=== PATIENT | male | born 1950 | race Caucasian/White ===

== ENCOUNTER 2020-04-26 08:34 | Outpatient (CLI) | payer MEDICARE, SELFPAY ==
--- NOTE | ~2020-04-26 | US_ITS ---
US thyroid INDICATION: Nontoxic thyroid goiter TECHNIQUE: Real-time sonographic images of the thyroid gland were obtained. COMPARISON: No prior studies for comparison. FINDINGS: The right thyroid lobe measures 5 x 2.3 x 1.4 cm. The left thyroid lobe measures 3.7 x 1.7 x 1.6 cm. There is heterogeneous echotexture and echogenicity throughout the thyroid gland. No discr ete nodules identified. Normal vascular flow is present. IMPRESSION: 1. Heterogeneous thyroid gland without discrete mass. Reviewed, dictated and finalized at location A.
[2020-04-26 10:02] LABS: Alanine Aminotransferase 33 U/L (4-50); Albumin Level 4.4 g/dL (3.5-5.1); Alkaline Phosphatase 79 U/L (38-126); Aspartate Amino Transferase 38 U/L (17-59); Bilirubin,Total 0.4 mg/dL (0.2-1.3); Blood Urea Nitrogen 18 mg/dL (9-20); Calcium 9.1 mg/dL (8.4-10.2); Carbon Dioxide 23 mmol/L (22-30); Chloride 103 mmol/L (98-107); Cholesterol 109 mg/dL (0-200); Estimated Glomerular Filt Rate > 60; Glucose 114 mg/dL (75-110); HDL Direct 45 mg/dL; Potassium 4.6 mmol/L (3.4-5.0); Sodium 135 mmol/L (137-145); Triglycerides 89 mg/dL (<150)
[2020-04-26 10:06] LABS: Hemoglobin A1C 5.8 % (<5.7)
[2020-04-26 10:08] LABS: LDL Cholesterol Direct 44 mg/dL
[2020-04-26 10:32] LABS: Creatinine Urine 92.2 mg/dL; Free T4 Free Thyroxine 1.04 ng/mL (0.78-2.19)
[2020-04-26 10:37] LABS: MALB Creatinine Ratio 23.2 mg/g (0-30); Microalbumin Urine Random 21.4 mg/L (0-16.7)
[2020-04-26 11:02] LABS: Folic Acid 18.9 ng/mL (2.76->20)
[2020-04-29 03:03] LABS: Triiodothyronine T3 Free 3.2 pg/mL (2.3-4.2)
[2020-04-29 03:27] LABS: Thyroid Peroxidase Antibodies <1 IU/mL (<9)
[2020-04-30 14:00] LABS: Testosterone Free 36.6 pg/mL (30.0-135.0); Testosterone Total 222 ng/dL (250-1100)
== END 2020-04-26 08:35 | disposition home or self-care (01) ==
PROVIDERS: Visit Provider Internal Medicine Endocrinology, Diabetes & Metabolism
DX: E11.65 Type 2 diabetes mellitus with hyperglycemia (principal); R53.83 Other fatigue
CPT/HCPCS: 36415; 76536; 80053; 80061; 82043; 82607; 82746; 83036; 84402; 84403; 84439; 84443; 84481; 86376

== ENCOUNTER 2020-06-14 09:13 | Outpatient (CLI) | payer MEDICARE, SELFPAY ==
[2020-06-14 10:05] LABS: Alanine Aminotransferase 42 U/L (4-50); Albumin Level 4.2 g/dL (3.5-5.1); Alkaline Phosphatase 68 U/L (38-126); Anion Gap 14.5 mmol/L (7-16); Aspartate Amino Transferase 38 U/L (17-59); Bilirubin,Total 0.3 mg/dL (0.2-1.3); Blood Urea Nitrogen 17 mg/dL (9-20); Calcium 9.3 mg/dL (8.4-10.2); Carbon Dioxide 24 mmol/L (22-30); Chloride 102 mmol/L (98-107); Cholesterol 104 mg/dL (0-200); Estimated Glomerular Filt Rate > 60; Glucose 117 mg/dL (75-110); HDL Direct 43 mg/dL; Potassium 4.5 mmol/L (3.4-5.0); Sodium 136 mmol/L (137-145); Triglycerides 111 mg/dL (<150)
[2020-06-14 10:11] LABS: Creatinine Urine 69.9 mg/dL
[2020-06-14 10:17] LABS: LDL Cholesterol Direct 43 mg/dL
[2020-06-14 10:18] LABS: MALB Creatinine Ratio 57.5 mg/g (0-30); Microalbumin Urine Random 40.2 mg/L (0-16.7)
[2020-06-14 14:32] LABS: Hemoglobin A1C 5.7 % (<5.7)
== END 2020-06-14 09:14 | disposition home or self-care (01) ==
PROVIDERS: PCP Internal Medicine Endocrinology, Diabetes & Metabolism; Visit Provider Internal Medicine Endocrinology, Diabetes & Metabolism
DX: E11.9 Type 2 diabetes mellitus without complications (principal); E78.5 Hyperlipidemia, unspecified
CPT/HCPCS: 36415; 80053; 80061; 82043; 83036

== ENCOUNTER 2020-09-13 08:18 | Outpatient (CLI) | payer MEDICARE, SELFPAY ==
[2020-09-13 09:39] LABS: Alanine Aminotransferase 32 U/L (4-50); Albumin Level 4.6 g/dL (3.5-5.1); Alkaline Phosphatase 73 U/L (38-126); Anion Gap 10 mmol/L (8-16); Aspartate Amino Transferase 29 U/L (17-59); Bilirubin,Total 0.3 mg/dL (0.2-1.3); Blood Urea Nitrogen 31 mg/dL (9-20); Calcium 9.7 mg/dL (8.4-10.2); Carbon Dioxide 27 mmol/L (22-30); Chloride 103 mmol/L (98-107); Estimated Glomerular Filt Rate 46; Glucose 116 mg/dL (75-110); Sodium 140 mmol/L (137-145)
[2020-09-13 09:41] LABS: Hemoglobin A1C 5.6 % (<5.7)
[2020-09-13 09:57] LABS: Iron 79 ug/dL (49-181)
[2020-09-13 10:03] LABS: MALB Creatinine Ratio 15.8 mg/g (0-30); Microalbumin Urine Random 11.5 mg/L (0-16.7)
[2020-09-13 10:07] LABS: Percent Iron Saturation 18 % (20-50)
[2020-09-16 13:08] LABS: FSH 6.3 mIU/mL (1.6-8.0); LH 6.3 mIU/mL (1.6-15.2)
== END 2020-09-13 08:19 | disposition home or self-care (01) ==
PROVIDERS: Visit Provider Internal Medicine Endocrinology, Diabetes & Metabolism
DX: E11.9 Type 2 diabetes mellitus without complications (principal); R79.89 Other specified abnormal findings of blood chemistry
CPT/HCPCS: 36415; 80053; 82043; 82728; 83001; 83002; 83036; 83540; 83550; 84146

== ENCOUNTER 2021-01-20 15:03 | Outpatient (CLI) | payer MEDICARE, SELFPAY | END 2021-01-20 15:04 | disposition home or self-care (01) | LOC: ANHCOVIDVC 15:03 | DX: Z23 Encounter for immunization (principal) | CPT/HCPCS: 0001A; 91300 ==

== ENCOUNTER 2021-02-02 07:35 | Outpatient (CLI) | payer MEDICARE, SELFPAY ==
[2021-02-02 08:18] LABS: Alanine Aminotransferase 30 U/L (4-50); Albumin Level 4.1 g/dL (3.5-5.1); Alkaline Phosphatase 68 U/L (38-126); Anion Gap 5 mmol/L (8-16); Aspartate Amino Transferase 28 U/L (17-59); Bilirubin,Total 0.3 mg/dL (0.2-1.3); Blood Urea Nitrogen 23 mg/dL (9-20); Calcium 9.2 mg/dL (8.4-10.2); Carbon Dioxide 31 mmol/L (22-30); Chloride 104 mmol/L (98-107); Cholesterol 117 mg/dL (0-200); Estimated Glomerular Filt Rate 55; Glucose 129 mg/dL (75-110); HDL Direct 43 mg/dL; Potassium 4.6 mmol/L (3.4-5.0); Sodium 140 mmol/L (137-145); Triglycerides 162 mg/dL (<150)
[2021-02-02 08:28] LABS: LDL Cholesterol Direct 48 mg/dL
[2021-02-02 08:59] LABS: MALB Creatinine Ratio 14.6 mg/g (0-30); Microalbumin Urine Random 7.9 mg/L (0-16.7)
[2021-02-02 09:32] LABS: Hemoglobin A1C 5.5 % (<5.7)
== END 2021-02-02 07:36 | disposition home or self-care (01) ==
PROVIDERS: Visit Provider Internal Medicine Endocrinology, Diabetes & Metabolism
DX: E78.5 Hyperlipidemia, unspecified (principal); E11.9 Type 2 diabetes mellitus without complications
CPT/HCPCS: 36415; 80053; 80061; 82043; 83036

== ENCOUNTER 2021-02-10 14:59 | Outpatient (CLI) | payer MEDICARE, SELFPAY | END 2021-02-10 15:00 | disposition home or self-care (01) | LOC: ANHCOVIDVC 14:59 | DX: Z23 Encounter for immunization (principal) | CPT/HCPCS: 0002A; 91300 ==

== ENCOUNTER 2021-07-19 07:26 | Outpatient (CLI) | payer MEDICARE, SELFPAY ==
[2021-07-19 08:41] LABS: Iron 74 ug/dL (49-181)
[2021-07-19 08:51] LABS: Percent Iron Saturation 18 % (20-50)
[2021-07-22 07:42] LABS: FSH 7.1 mIU/mL (1.6-8.0); LH 6.9 mIU/mL (1.6-15.2)
[2021-07-22 19:08] LABS: Testosterone Free 51.3 pg/mL (30.0-135.0); Testosterone Total 242 ng/dL (250-1100)
== END 2021-07-19 07:27 | disposition home or self-care (01) ==
PROVIDERS: Visit Provider Internal Medicine Endocrinology, Diabetes & Metabolism
DX: R79.89 Other specified abnormal findings of blood chemistry (principal)
CPT/HCPCS: 36415; 82728; 83001; 83002; 83540; 83550; 84146; 84402; 84403

== ENCOUNTER 2021-08-23 07:42 | Outpatient (CLI) | payer MEDICARE, SELFPAY ==
[2021-08-23 08:26] LABS: Alanine Aminotransferase 28 U/L (4-50); Albumin Level 4.7 g/dL (3.5-5.1); Alkaline Phosphatase 82 U/L (38-126); Anion Gap 10 mmol/L (8-16); Aspartate Amino Transferase 26 U/L (17-59); Bilirubin,Total 0.4 mg/dL (0.2-1.3); Blood Urea Nitrogen 29 mg/dL (9-20); Calcium 9.8 mg/dL (8.4-10.2); Carbon Dioxide 25 mmol/L (22-30); Chloride 105 mmol/L (98-107); Cholesterol 116 mg/dL (0-200); Estimated Glomerular Filt Rate 50; Glucose 131 mg/dL (65-110); HDL Direct 45 mg/dL; Potassium 5.1 mmol/L (3.4-5.0); Sodium 140 mmol/L (137-145); Triglycerides 143 mg/dL (<150)
[2021-08-23 08:37] LABS: LDL Cholesterol Direct 49 mg/dL
[2021-08-23 10:07] LABS: Creatinine Urine 64.7 mg/dL
[2021-08-23 10:12] LABS: Hemoglobin A1C 6.1 % (<5.7)
[2021-08-23 10:27] LABS: MALB Creatinine Ratio 17.5 mg/g (0-30); Microalbumin Urine Random 11.3 mg/L (0-16.7)
[2021-08-23 10:47] LABS: Free T4 Free Thyroxine 0.96 ng/mL (0.78-2.19)
== END 2021-08-23 07:43 | disposition home or self-care (01) ==
PROVIDERS: Visit Provider Internal Medicine Endocrinology, Diabetes & Metabolism
DX: E11.9 Type 2 diabetes mellitus without complications (principal); E78.5 Hyperlipidemia, unspecified
CPT/HCPCS: 36415; 80053; 80061; 82043; 83036; 84439; 84443

== ENCOUNTER 2022-01-24 07:11 | Outpatient (CLI) | payer MEDICARE, SELFPAY ==
[2022-01-24 08:02] LABS: Alanine Aminotransferase 26 U/L (4-50); Albumin Level 4.2 g/dL (3.5-5.1); Alkaline Phosphatase 78 U/L (38-126); Anion Gap 5 mmol/L (8-16); Aspartate Amino Transferase 26 U/L (17-59); Bilirubin,Total 0.2 mg/dL (0.2-1.3); Blood Urea Nitrogen 31 mg/dL (9-20); Calcium 9.2 mg/dL (8.4-10.2); Carbon Dioxide 25 mmol/L (22-30); Chloride 106 mmol/L (98-107); Cholesterol 108 mg/dL (0-200); Estimated Glomerular Filt Rate 46; Glucose 142 mg/dL (65-110); HDL Direct 38 mg/dL; Potassium 5.1 mmol/L (3.4-5.0); Sodium 136 mmol/L (137-145); Triglycerides 122 mg/dL (<150)
[2022-01-24 08:13] LABS: LDL Cholesterol Direct 46 mg/dL
[2022-01-24 08:20] LABS: Creatinine Urine 86.5 mg/dL
[2022-01-24 08:24] LABS: MALB Creatinine Ratio 17.5 mg/g (0-30); Microalbumin Urine Random 15.1 mg/L (0-16.7)
[2022-01-24 10:11] LABS: Hemoglobin A1C 5.9 % (<5.7)
== END 2022-01-24 07:12 | disposition home or self-care (01) ==
PROVIDERS: Visit Provider Internal Medicine Endocrinology, Diabetes & Metabolism
DX: E11.9 Type 2 diabetes mellitus without complications (principal)
CPT/HCPCS: 36415; 80053; 80061; 82043; 83036

== ENCOUNTER 2022-08-14 06:55 | Outpatient (CLI) | payer MEDICARE, SELFPAY ==
[2022-08-14 07:40] LABS: Alanine Aminotransferase 28 U/L (6-50); Albumin Level 4.3 g/dL (3.5-5.1); Alkaline Phosphatase 82 U/L (38-126); Anion Gap 12 mmol/L (8-16); Aspartate Amino Transferase 25 U/L (17-59); Bilirubin,Total 0.3 mg/dL (0.2-1.3); Blood Urea Nitrogen 23 mg/dL (9-20); Calcium 9.5 mg/dL (8.4-10.2); Carbon Dioxide 26 mmol/L (22-30); Chloride 103 mmol/L (98-107); Cholesterol 122 mg/dL (0-200); Estimated Glomerular Filt Rate 54; Glucose 164 mg/dL (65-110); HDL Direct 44 mg/dL; Potassium 4.5 mmol/L (3.4-5.0); Sodium 141 mmol/L (137-145); Triglycerides 141 mg/dL (<150)
[2022-08-14 07:51] LABS: LDL Cholesterol Direct 49 mg/dL
[2022-08-14 07:53] LABS: Microalbumin Urine Random 17.3 mg/L (0-16.7)
[2022-08-14 07:54] LABS: Creatinine Urine 64.9 mg/dL; MALB Creatinine Ratio 26.7 mg/g (0-30)
[2022-08-14 08:24] LABS: Hemoglobin A1C 6.5 % (<5.7)
[2022-08-14 08:26] LABS: Free T4 Free Thyroxine 1.14 ng/mL (0.78-2.19)
== END 2022-08-14 06:56 | disposition home or self-care (01) ==
LOC: ANHLAB 06:59
PROVIDERS: Visit Provider Internal Medicine Endocrinology, Diabetes & Metabolism
DX: E78.5 Hyperlipidemia, unspecified (principal); E11.9 Type 2 diabetes mellitus without complications
CPT/HCPCS: 36415; 80053; 80061; 82043; 83036; 84439; 84443

== ENCOUNTER 2022-08-29 08:59 | Outpatient (CLI) | payer MEDICARE, SELFPAY ==
--- NOTE | ~2022-08-29 | XR_ITS ---
EXAM: XR knee RT 3V DATE: 08/29/2022 09:24 HISTORY: M25.561 - Pain in right knee . COMPARISON: None available. FINDINGS: Right knee arthroplasty with patellar resurfacing, no hardware related complication. Multi ple ossific bodies projecting over the posterior soft tissues and the suprapatellar soft tissues, may represent some combination of surgical fragments, dystrophic calcification/ossification, soft tissue calcification such as fabella, or loose bodies. IMPRESSION: No osseous fracture. No hardware related consultation. Ossific bodies projecting over the soft tissues, detailed above. Reviewed, dictated and finalized at location K. IMPRESSION: No osseous fracture. No hardware related consultation. Ossific bodi es projecting over the soft tissues, detailed above.
== END 2022-08-29 09:00 | disposition home or self-care (01) ==
LOC: CHSIMG 09:03
PROVIDERS: Visit Provider Orthopaedic Surgery
DX: M25.561 Pain in right knee (principal)
CPT/HCPCS: 73562

== ENCOUNTER 2022-09-04 12:04 | Outpatient (CLI) | payer MEDICARE, SELFPAY ==
--- NOTE | ~2022-09-04 | CT_ITS ---
EXAMINATION: CT knee RT wo con DATE: 09/04/2022 12:33 INDICATION: Right knee pain. TECHNIQUE: Computed tomography (CT) of the right knee was performed without intravenous contrast. Aut omated exposure control and iterative reconstruction technique were employed. The dose-length product was 546.42 mGy-cm. COMPARISON: Right knee radiographs 08/29/2022 FINDINGS: There is a total right knee arthroplasty in near-anatomic alignment. No fracture. No peripr osthetic lucency to suggest loosening or infection. There is a small knee joint effusion. There are d ystrophic calcifications in the area of the quadriceps tendon. There are loose bodies in a [address]. IMPRESSION: 1. Total right knee arthroplasty in near-anatomic alignment. 2. Small right knee joint effusion. Reviewed, dictated and finalized at location B.
== END 2022-09-04 12:05 | disposition home or self-care (01) ==
LOC: CHSIMG 12:07
PROVIDERS: Visit Provider Orthopaedic Surgery
DX: T84.84XA Pain due to internal orthopedic prosthetic devices, implants and grafts, initial encounter (principal); Z96.651 Presence of right artificial knee joint
CPT/HCPCS: 73700

== ENCOUNTER 2022-09-15 07:42 | Outpatient (CLI) | payer MEDICARE, SELFPAY ==
--- NOTE | ~2022-09-15 | XR_ITS ---
XR lg joint inject/asp w image INDICATION: Right hip arthritis TECHNIQUE: After discussing the procedure with the patient, including the possible risks, complicatio ns, and benefits, oral consent was obtained. A timeout was performed verifying the patient's name, d ate of , and site of injection. The skin overlying the joint was prepped and draped in usual st erile fashion. Anesthetic was administered with 1% lidocaine subcutaneously. A 22 G needle was adva nced under fluoroscopic guidance into the right hip joint. Injection of 1cc of Omnipaque 240 was per formed to verify intra-articular position of the needle. Intra-articular needle position was confirm ed. Subsequently, injectate consisting of 80 mg Depo-Medrol and 2 cc of 0.5% Marcaine were instilled . The needle was removed and the entry site was cleaned and dressed. There were no immediate compli cations.] FINDINGS: Patient's pain prior to procedure: 07/29. Patient's pain following the procedure: 12/29.] IMPRESSION: 1.: Successful right hip injection of anesthetic and steroid with diminution of presenting pain. Reviewed, dictated and finalized at location B. IMPRESSION: 1.: Successful right hip injection of anesthetic and steroid with diminution o f presenting pain.
== END 2022-09-15 07:43 | disposition home or self-care (01) ==
LOC: CHSIMG 07:45
PROVIDERS: Visit Provider Orthopaedic Surgery
DX: M16.11 Unilateral primary osteoarthritis, right hip (principal)
CPT/HCPCS: 20610; 77002; J1030; Q9965

== ENCOUNTER 2022-12-21 07:01 | Outpatient (CLI) | payer MEDICARE, SELFPAY ==
[2022-12-21 08:05] LABS: Creatinine Urine 59.8 mg/dL
[2022-12-21 08:09] LABS: Alanine Aminotransferase 34 U/L (6-50); Albumin Level 4.1 g/dL (3.5-5.1); Alkaline Phosphatase 91 U/L (38-126); Anion Gap 7 mmol/L (8-16); Aspartate Amino Transferase 31 U/L (17-59); Bilirubin,Total 0.5 mg/dL (0.2-1.3); Blood Urea Nitrogen 23 mg/dL (9-20); Calcium 9.1 mg/dL (8.4-10.2); Carbon Dioxide 27 mmol/L (22-30); Chloride 102 mmol/L (98-107); Cholesterol 121 mg/dL (0-200); Estimated Glomerular Filt Rate 50; Glucose 152 mg/dL (65-110); HDL Direct 40 mg/dL; Potassium 4.5 mmol/L (3.4-5.0); Sodium 136 mmol/L (137-145); Triglycerides 201 mg/dL (<150)
[2022-12-21 08:10] LABS: MALB Creatinine Ratio 26.6 mg/g (0-30); Microalbumin Urine Random 15.9 mg/L (0-16.7)
[2022-12-21 08:21] LABS: LDL Cholesterol Direct 47 mg/dL
[2022-12-21 08:29] LABS: Free T4 Free Thyroxine 1.15 ng/mL (0.78-2.19)
== END 2022-12-21 07:02 | disposition home or self-care (01) ==
PROVIDERS: Visit Provider Nurse Practitioner
DX: E78.5 Hyperlipidemia, unspecified (principal); E11.9 Type 2 diabetes mellitus without complications
CPT/HCPCS: 36415; 80053; 80061; 82043; 83036; 84439; 84443

== ENCOUNTER 2023-06-19 06:51 | Outpatient (CLI) | payer MEDICARE, SELFPAY ==
[2023-06-19 08:08] LABS: Alanine Aminotransferase 36 U/L (6-50); Albumin Level 4.5 g/dL (3.5-5.1); Alkaline Phosphatase 97 U/L (38-126); Anion Gap 7 mmol/L (8-16); Aspartate Amino Transferase 29 U/L (17-59); Bilirubin,Total 0.4 mg/dL (0.2-1.3); Blood Urea Nitrogen 23 mg/dL (9-20); Calcium 9.8 mg/dL (8.4-10.2); Carbon Dioxide 27 mmol/L (22-30); Chloride 101 mmol/L (98-107); Cholesterol 145 mg/dL (0-200); Estimated Glomerular Filt Rate 54; Glucose 162 mg/dL (65-110); HDL Direct 46 mg/dL; Potassium 5.1 mmol/L (3.4-5.0); Sodium 135 mmol/L (137-145); Triglycerides 154 mg/dL (<150)
[2023-06-19 08:17] LABS: Hemoglobin A1C 7.1 % (<5.7)
[2023-06-19 08:19] LABS: LDL Cholesterol Direct 65 mg/dL
[2023-06-19 08:25] LABS: Creatinine Urine 46.2 mg/dL
[2023-06-19 08:30] LABS: MALB Creatinine Ratio 21.2 mg/g (0-30); Microalbumin Urine Random 9.8 mg/L (0-16.7)
[2023-06-19 08:34] LABS: Free T4 Free Thyroxine 1.04 ng/mL (0.78-2.19)
== END 2023-06-19 06:52 | disposition home or self-care (01) ==
PROVIDERS: Visit Provider Internal Medicine Endocrinology, Diabetes & Metabolism
DX: E11.9 Type 2 diabetes mellitus without complications (principal); E78.5 Hyperlipidemia, unspecified
CPT/HCPCS: 36415; 80053; 80061; 82043; 83036; 84439; 84443

== ENCOUNTER 2023-09-06 08:26 | Outpatient (CLI) | payer MEDICARE, SELFPAY ==
--- NOTE | ~2023-09-06 | XR_ITS ---
XR lg joint inject/asp w image DATE: 09/06/2023 11:22 INDICATION: Right hip pain, arthritis TECHNIQUE: The purpose of the procedure, technique and potential complications were discussed with th e patient. The patient indicated understanding and gave verbal and written consent. The skin over the anterior right hip area was prepared with sterile Betadine solution. Sterile drape was applied. 1% lidocaine local anesthetic was administered to the skin and underlying subcutaneous tissues at the proximal anterolateral right thigh. A 6 inch 20-gauge spinal needle was introduced into the right hip joint space anteriorly using fluoro scopic guidance. A radiopaque contrast material injection confirmed intra-articular position of the n eedle. A radiograph exposure was made with the contrast material or joint to document intra-articular needle position. Subsequently 2 CC of local anesthetic and 80 mg Depo-Medrol were injected into the right hip joint. The needle was then withdrawn. IMPRESSION: Successful fluoroscopically guided intra-articular right hip injection of local anestheti c and 80 mg Depo-Medrol Reviewed, dictated and finalized at Location A. Reviewed, dictated and finalized at location L. IMPRESSION: Successful fluoroscopically guided intra-articular right hip inject ion of local anesthetic and 80 mg Depo-Medrol
== END 2023-09-06 08:27 | disposition home or self-care (01) ==
LOC: CHSIMG 08:28
PROVIDERS: PCP Family Medicine; Visit Provider Orthopaedic Surgery
DX: M16.11 Unilateral primary osteoarthritis, right hip (principal)
CPT/HCPCS: 20610; 77002; J1030

== ENCOUNTER 2024-08-15 13:32 | Outpatient (CLI) | payer MEDICARE, SELFPAY ==
--- NOTE | ~2024-08-15 | XR_ITS ---
EXAMINATION: XR lg joint inject/asp w image DATE: 08/15/2024 14:40 INDICATION: Right hip arthritis TECHNIQUE: A time-out was performed to verify the patient's name, date of , and procedure to b e performed. The procedure including the risks, benefits, and alternatives was discussed with the pat ient. Risks discussed included bleeding and infection. The patient understood the risks and agreed to proceed. The skin overlying the right hip joint was prepped and draped in usual sterile fashion. A nesthetic was administered with 1% lidocaine subcutaneously. A 22 G needle was advanced under fluoro scopic guidance into the joint. Injection of 1 mL of Omnipaque 240 confirmed intra-articular positio n of the needle. Subsequently, injectate consisting of 3 mL of a 2:1 mixture of 0.5% bupivacaine: 80 mg/mL Depo-Medrol for a total dosage of 80 mg Depo-Medrol was instilled. Washout of contrast was see n confirming intra-articular administration. The needle was removed and the entry site was cleaned an d dressed. There were no immediate complications. Fluoroscopy exposure time was 0.6 minutes. The tot al number of images was 2. FINDINGS: Real-time fluoroscopy demonstrates the needle in the right hip joint. Patient's pain prior to procedure:5/10. Patient's pain following the procedure: 2/10. IMPRESSION: 1. Successful right hip joint injection of local anesthetic and steroid with decrease in the patient' s presenting pain. Reviewed, dictated and finalized at location A. IMPRESSION: 1. Successful right hip joint injection of local anesthetic and steroid with de crease in the patient's presenting pain.
== END 2024-08-15 13:33 | disposition home or self-care (01) ==
LOC: ANHIMG 13:35
PROVIDERS: PCP Family Medicine; Visit Provider Orthopaedic Surgery
DX: M16.11 Unilateral primary osteoarthritis, right hip (principal)
CPT/HCPCS: 20610; 77002; J1010; Q9966